=== PATIENT | male | born 1995 | race African-American/Black ===

== ENCOUNTER 2022-07-27 04:10 | Emergency (ER) | payer SELFPAY ==
[2022-07-27 04:16] VITALS: BP 138/88; PULSE 88; RESP 20; TEMP 36.6; O2SAT 99; BMI 17.2
--- NOTE | 2022-07-27 04:22 | ED.CHESTPAIN ---
HPI - Chest Pain General Chief Complaint: Chest Pain Stated Complaint: chest pain, hand are swollen Time Seen by Provider: 07/27/22 04:26 History of Present Illness HPI narrative: Patient is a 27-year-old gentleman who comes in today stating that he feels like he has blockage in his entire body. He has pain throughout his body and feels like he has poor circulation. He also feels like he has been having chest pain for last several days. He has had no nausea no vomiting no fevers no chills. He has no limitations in his activities. Pain is dull and interior in his chest. He has had no other significant symptoms but admits being under significant amount of stress. He recently lost his grandfather. Patient is not tried any [id number] medications. Patient otherwise is in reasonable health takes no chronic medication. Related Data Allergies Allergy/AdvReac Type Severity Reaction Status Date / Time coconut Allergy Severe Difficulty Verified 07/27/22 04:24 Breathing morphine Allergy Intermediate Verified 07/27/22 04:24 Review of Systems Status of ROS Reports: 10 or more systems reviewed and unremarkable except as noted in History and below PFSH [facility] Social History Smoking Status: Current every day smoker What tobacco products do you use: cigarettes Do you use any of these nicotine containing products: None How often do you have a drink containing alcohol: 4 or more times a week How many standard drinks containing alcohol do you have on a typical day: 1 or 2 AUDIT-C Alcohol total score: 4 Non-prescribed substance use: marijuana (any form) and crack/cocaine Non-prescribed substance use details: smokes marijuana daily used cocaine a few days ago Exam Narrative Exam Narrative: EXAM GENERAL: Patient appears comfortable and well. EYES: No scleral icterus. THYROID: no thyroid nodules or thyromegaly. LYMPH: No supraclavicular or cervical lymphadenopathy. SKIN: Visible skin seen during exam normal or with benign process only. EXT: No dependent lower extremity pedal edema. HEART: Regular rate and rhythm with no murmurs, rubs, or gallops. LUNGS: Clear to auscultation bilaterally with no crackles or wheezes. ABD: Soft, non tender, non distended. PSYCH: Good eye contact, speech is not pressured. Const Vital Signs, click to edit/add: Vital Signs - 24 hr 07/27/22 04:16 Temperature 98 F Pulse Rate [Pulse Oximeter] 88 Respiratory Rate 20 Blood Pressure [Left Upper Arm] 138/88 Pulse Oximetry 99 Oxygen Delivery Method Room Air Course Course Hospital Course: Patient seen examined. Vital Signs Vital signs: Initial Vital Signs Temperature 98 F 07/27/22 04:16 Temperature Source Temporal Artery Scan 07/27/22 04:16 Pulse Rate 88 07/27/22 04:16 Pulse Rhythm Regular 07/27/22 04:16 Respiratory Rate 20 07/27/22 04:16 Blood Pressure 138/88 07/27/22 04:16 Blood Pressure Mean 104 07/27/22 04:16 Pulse Oximetry 99 07/27/22 04:16 Oxygen Delivery Method Room Air 07/27/22 04:16 Vital Signs Temperature 98 F 07/27/22 04:16 Pulse Rate 88 07/27/22 04:16 Respiratory Rate 20 07/27/22 04:16 Blood Pressure 138/88 07/27/22 04:16 Pulse Oximetry 99 07/27/22 04:16 Oxygen Delivery Method Room Air 07/27/22 04:16 Temperature 98 F 07/27/22 04:16 Pulse Rate 88 07/27/22 04:16 Respiratory Rate 20 07/27/22 04:16 Blood Pressure 138/88 07/27/22 04:16 Pulse Oximetry 99 07/27/22 04:16 Oxygen Delivery Method Room Air 07/27/22 04:16 MDM - Chest Pain MDM Narrative Medical decision making narrative: Patient is a 27-year-old gentleman who comes in with chronic body aches malaise and symptoms that he feels are consistent with blockage throughout his body. He has a completely normal exam with the exception of the peers anxious. EKG troponin chest x-ray CBC basic metabolic panel are all negative. His symptoms are consistent with anxiety and I do not believe further evaluation is indicated other than outpatient follow-up. Differential Diagnosis Differential diagnosis: Likely fracture of rib, pneumothorax, stable angina, unstable angina pectoris, atypical chest pain, st elevation myocardial infarction, costochondritis and chest pain Lab Data Labs: Lab Results 07/27/22 Range/Units 04:30 WBC 8.80 (4.50-11.00) K/uL RBC 4.84 (4.30-5.90) m/uL Hgb 13.5 (13.5-17.5) gm/dL Hct 37.4 (37.0-53.0) % MCV 77 L (80-100) fL MCH 28 (26-34) pg MCHC 36 (32-36) gm/dL RDW Coeff of Celine 13.7 (11.5-15.5) % Plt Count 215 (140-440) K/uL Neut % (Auto) 71.4 (42.0-72.0) % Lymph % (Auto) 19.7 L (20-44) % [place] % (Auto) 7.3 (0.0-11.0) % Eos % (Auto) 0.9 (0.0-7.0) % Baso % (Auto) 0.5 (0.0-3.0) % Neut # (Auto) 6.29 (1.7-7.0) K/uL Lymph # (Auto) 1.70 (0.90-2.90) K/uL [place] # (Auto) 0.60 (0.00-0.90) K/UL Eos # (Auto) 0.08 (0.00-0.50) K/uL Baso # (Auto) 0.04 (0.00-0.30) K/uL Sodium 137 (135-149) mmol/L Potassium 3.4 L (3.6-5.1) mmol/L Chloride 105 (96-114) mmol/L Carbon Dioxide 24 (20-32) mmol/L BUN 11 (5-24) mg/dL Creatinine 0.8 (0.5-1.5) mg/dL Estimated Creat Clear 104.89 Estimated GFR 123 ml/min Glucose 97 (60-115) mg/dL Calcium 9.0 (8.4-10.6) mg/dL Discharge Plan Discharge Clinical Impression: Anxiety Condition: Stable Instructions: Anxiety (ED) Additional Instructions: Follow-up with primary care. Activity Level: No Restrictions Discharge Diet: Regular Stand Alone Forms: [employer] Info Instructions
--- NOTE | 2022-07-27 04:26 | CRLHL7_ITS ---
For Patients: As a result of the Century Cures Act, medical imaging exams and procedure reports are released immediately into your electronic medical record. You may view this report before your referring provider. If you have questions, please contact your health care provider. INDICATION: Chest pain. TECHNIQUE: Chest 1 views. COMPARISON: None. FINDINGS: Cardiovascular and mediastinum: Heart size and vasculature are normal in caliber and appearance. Lungs and pleural spaces: Lungs are clear. No sign of infiltrate. No sign of pleural effusion. No pneumothorax. Bones and soft tissues: No significant findings. IMPRESSION: No acute or significant findings. Dictated by Shahram Nagel MD @ 07/27/2022 6:19:17 AM (Electronically Signed)
[2022-07-27 04:41] LABS: Basophils Absolute Auto 0.04 K/uL (0.00-0.30); Basophils Percent Auto 0.5 % (0.0-3.0); Eosinophils Absolute Auto 0.08 K/uL (0.00-0.50); Eosinophils Percent Auto 0.9 % (0.0-7.0); Hematocrit 37.4 % (37.0-53.0); Hemoglobin* 13.5 gm/dL (13.5-17.5); Immature Granulocytes Abs Auto 0.02 K/uL (0.00-0.30); Immature Granulocytes Pct Auto 0.2 %; Lymphocytes Percent Auto 19.7 % (20-44); Mean Corpuscular HGB Conc 36 gm/dL (32-36); Mean Corpuscular Hemoglobin 28 pg (26-34); Mean Corpuscular Volume 77 fL (80-100); Monocytes Percent Auto 7.3 % (0.0-11.0); Neutrophils Absolute Auto 6.29 K/uL (1.7-7.0); Neutrophils Percent Auto 71.4 % (42.0-72.0); Platelet Count* 215 K/uL (140-440); RDW Coefficient of Variation % 13.7 % (11.5-15.5); Red Blood Count 4.84 m/uL (4.30-5.90)
[2022-07-27 04:43] LABS: Slide Review Reflex No
[2022-07-27 04:54] LABS: Chloride* 105 mmol/L (96-114); Potassium* 3.4 mmol/L (3.6-5.1); Sodium* 137 mmol/L (135-149)
[2022-07-27 04:57] LABS: Blood Urea Nitrogen* 11 mg/dL (5-24); Carbon Dioxide* 24 mmol/L (20-32); Creatinine* 0.8 mg/dL (0.5-1.5); Est. Creatinine Clearance* 104.89; Estimated Glomerular Filt Rate 123 ml/min; Glucose* 97 mg/dL (60-115)
[2022-07-27 05:10] LABS: Troponin I* < 0.01 ng/mL (0.01-0.04)
--- NOTE | 2022-07-27 05:15 | PC.NURSE ---
Discharge instruction gone over with patient and girlfriend, patient is feeling a little better.
== END 2022-07-27 05:16 | disposition home or self-care (01) ==
LOC: ED 04:50
PROVIDERS: Emergency Provider Internal Medicine
DX: F41.9 Anxiety disorder, unspecified (principal)
CPT/HCPCS: 36415; 71045; 80048; 84484; 85025; 93005; 99283; 99284

== ENCOUNTER 2022-12-08 15:48 | Emergency (ER) | payer SELFPAY ==
[2022-12-08 15:54] VITALS: BP 123/69; PULSE 96; RESP 20; TEMP 36.9; O2SAT 99; BMI 21.4
--- NOTE | 2022-12-08 16:31 | CRLHL7_ITS ---
For Patients: As a result of the Cures Act, medical imaging exams and procedure reports are released immediately into your electronic medical record. You may view this report before your referring provider. If you have questions, please contact your health care provider. Indication: Trauma. Technique: Left hand, 3 views. Comparison: None. Findings/Impression: Bones: Alignment is normal. No displaced fractures or bone lesions. Joint spaces: Unremarkable. Soft tissues: Soft tissue injury about the thenar eminence. No radiopaque foreign bodies. Dictated by Romero Francis MD @ 12/08/2022 5:31:58 PM (Electronically Signed)
--- NOTE | 2022-12-08 16:37 | PC.NURSE ---
[facility] called and dog bite reported, will send officer here
--- NOTE | 2022-12-08 19:10 | ED.NURSE ---
Open areas of skin on hand was covered with bacitracin, tefla and Kerlix.
[2022-12-08] MEDS: AMOXICILLIN/CLAVULANATE 875 mg/125 mg TABLET PO (19:20)
--- NOTE | 2022-12-09 00:50 | ED_ITS ---
HPI - General Adult General Chief complaint: Animal Bite Stated complaint: Dog bites Time Seen by Provider: 12/08/22 16:04 History of Present Illness HPI narrative: This is a 27-year-old male who presented to the ER today by private car for evaluation of dog bites to his left wrist and hand. The patient is generally healthy. He is up-to-date on his tetanus. He was bit by his own pit bull dog this afternoon just prior to arrival. His 2 dogs were fighting and he was apparently trying to break it up. One of the dogs bit him on the left hand. He suffered lacerations to the volar and dorsal aspect of the metacarpal of the left thumb, as well as a laceration to the dorsal midportion of his hand, and a laceration to the radial aspect of his left wrist. Having lot of pain in his hand. He has an anxious and panicky and feels tingly all over his body. After local anesthesia were able to do a better exam. He does not have any associated numbness. He has difficulty abducting his thumb against the radial side of his hand, due to pain. His dog is vaccinated against rabies. No other injuries. Related Data Previous Rx's Medication Instructions Recorded amoxicillin 875 mg-potassium 1 tab PO Q12H #10 tabs 12/08/22 clavulanate 125 mg tablet Allergies Allergy/AdvReac Type Severity Reaction Status Date / Time coconut Allergy Severe Difficulty Verified 07/27/22 04:24 Breathing morphine Allergy Intermediate Verified 07/27/22 04:24 Review of Systems Narrative: Negative [facility] Social History Smoking Status: Current every day smoker What tobacco products do you use: cigarettes Do you use any of these nicotine containing products: None How often do you have a drink containing alcohol: 4 or more times a week How many standard drinks containing alcohol do you have on a typical day: 1 or 2 AUDIT-C Alcohol total score: 4 Non-prescribed substance use: marijuana (any form) and crack/cocaine Non-prescribed substance use details: smokes marijuana daily used cocaine a few days ago Exam Narrative: Exam Narrative: Constitutional: Appears well-developed and well-nourished. Alert. He is very anxious, pacing around the room, hyperventilating. He is holding a towel over his left hand. He is able to calm down and move into bed for medial evaluate and perform local anesthesia. HENT: Head: Atraumatic. Nose: Nose normal. Mouth/Throat: Oral mucosa is clear and moist. no trismus. Pharynx normal. Tonsils symmetric. No tonsillar enlargement, erythema, or exudate. Eyes: Conjunctivae normal. EOM normal. Pupils equal, round, and reactive to light. No scleral icterus. Neck: Normal range of motion. Neck supple. No tracheal deviation present. Cardiovascular: Normal rate, regular rhythm. No gallop. No friction rub. No murmur heard. Symmetric radial artery pulses Pulmonary/Chest: Effort normal. No stridor. No respiratory distress. No wheezes. No rales. No rhonchi . Musculoskeletal: RUE: Normal range of motion. No tenderness. No deformity LUE: He has multiple lacerations. Laceration 1. Is on the palmar surface of the thenar eminence of the left thumb. It is approximately 1-1.5 cm in length and is somewhat stellate. It penetrates through the skin and into the muscle of the thenar eminence. No pulsatile bleeding. Laceration 2. Is on the dorsal surface of the metacarpal of the left thumb. It is a L-shaped 2 cm laceration. It penetrates into the subcutaneous tissue. No visible tendon injury. Laceration 3.. Is a smaller 0.5 cm laceration on the dorsal metacarpal of the left thumb just proximal to laceration 2. Laceration 4 Is a 2 cm gaping laceration on the dorsum of the patient's left hand roughly over the mid dorsum of the 3rd metacarpal. on the This penetrates down through the subcutaneous tissue not able to visualize the extensor tendon of the 2nd digit but I do not see any tendon defect. Had the patient range his finger through full range of motion. He has intact extensor tendon function and no visible tendon defect. Laceration 5. Is a 0.5 cm laceration on the radial aspect of the distal 1/4 of the forearm. Normal range of motion. No tenderness. No deformity RLE: Normal range of motion. No edema. No tenderness. No deformity LLE: Normal range of motion. No edema. No tenderness. No deformity Neurological: Alert and oriented to person, place, and time. Normal strength. CN II-VII intact. No sensory deficit. GCS eye subscore is 4. GCS verbal subscore is 5. GCS motor subscore is 6. Normal coordination intact digital nerve, radial, median, ulnar nerve sensory function. Skin: Skin is warm and dry. No rash noted. No pallor. Normal capillary refill. Psychiatric: Very anxious but response to verbal cues/calming techniques. Const: Vital Signs, click to edit/add: Vital Signs - 24 hr 12/08/22 15:54 Temperature 98.4 F Pulse Rate [Right Pulse Oximeter] 96 Respiratory Rate 20 Blood Pressure [Ri ght Upper Arm] 123/69 Pulse Oximetry 99 Oxygen Delivery Me thod Room Air Course Vital Signs Vital signs: Initial Vital Signs Temperature 98.4 F 12/08/22 15:54 Temperature Source Temporal Artery Scan 12/08/22 15:54 Pulse Rate 96 12/08/22 15:54 Pulse Rhythm Regular 12/08/22 15:54 Pulse Strength 3+ Normal 12/08/22 15:54 Respiratory Rate 20 12/08/22 15:54 Blood Pressure 123/69 12/08/22 15:54 Blood Pressure Mean 87 12/08/22 15:54 Blood Pressure Position Sitting 12/08/22 15:54 Pulse Oximetry 99 12/08/22 15:54 Oxygen Delivery Method Room Air 12/08/22 15:54 Vital Signs Temperature 98.4 F 12/08/22 15:54 Pulse Rate 96 12/08/22 15:54 Respiratory Rate 20 12/08/22 15:54 Blood Pressure 123/69 12/08/22 15:54 Pulse Oximetry 99 12/08/22 15:54 Oxygen Delivery Method Room Air 12/08/22 15:54 Temperature 98.4 F 12/08/22 15:54 Pulse Rate 96 12/08/22 15:54 Respiratory Rate 20 12/08/22 15:54 Blood Pressure 123/69 12/08/22 15:54 Pulse Oximetry 99 12/08/22 15:54 Oxygen Delivery Method Room Air 12/08/22 15:54 Medical Decision Making MDM Narrative Medical decision making narrative: Procedure: Laceration repair Location: Radial aspect, left distal forearm Length: 0.5-1 cm Local anesthesia with local infiltration of 2 mL 1% lidocaine with epi Wound prep: Scrubbing and irrigation with sterile saline and Hibiclens Wound repair: Wound was repaired using#2 simple interrupted 5 O Ethilon sutures Procedure: Laceration repair Location: Dorsal aspect of left hand Length: 2 cm Local anesthesia with local infiltration of 3 mL of 1% lidocaine with epi Wound prep: Scrubbing and irrigation with sterile saline and Hibiclens. Wound repair: Wound is repaired using#5 simple interrupted 5 O Ethilon sutures. Procedure: Laceration repair Location: Dorsal aspect of metacarpal of left thumb Length: 1.5 cm L-shaped laceration creating a small flap skin Local anesthesia with local infiltration of 3 mL of 1% lidocaine with epi Wound prep: Scrubbing with saline and Hibiclens and irrigation with sterile saline Wound repair: Wound was repaired using placement of#4 simple interrupted 5 O Ethilon sutures. Careful attention was paid to approximating the corner of the wound flap. Wound edges were well apposed Procedure: Laceration repair Location: Dorsal aspect of the metacarpal of left Length: 0.5 cm laceration Local anesthesia with local infiltration of 1 mL of 1% lidocaine with epi Wound prep: Scrubbing and irrigation with sterile saline and Hibiclens Wound repair: Wound is repaired using#1 simple interrupted 5 O Ethilon suture Procedure: Laceration repair Location: Volar aspect of metacarpal of left thumb/left thenar eminence Length: 1.5 cm irregularly-shaped stellate laceration Local anesthesia using local infiltration of 4 mL of 1% lidocaine with epi Wound prep: Irrigation with sterile saline, scrubbing with saline and Hibiclens Wound repair: Wound is repaired using 3. Simple interrupted 5 O Ethilon sutures Findings and exam are consistent with a dog bite leading to multiple lacerations on his left hand/wrist. These were repaired as noted above. There is no evidence at this time to suggest any associated fracture or foreign body. There is no evidence to suggest arterial injury and patient is neurologically in tact. He does have difficult route ranging his left thumb. Unclear if this is just due to anxiety and apprehension or patellar may actually be a deep injury there. Will arrange outpatient orthopedic follow-up.. The patient is to follow up for suture removal as instructed in 10 days. Indications to seek urgent reevaluation and signs of infection (including but not limited to increasing pain, redness, swelling, fevers, and drainage) were reviewed. Tetanus is up-to-date. The dog is up-to-date with rabies series. Since this is a dog bite we will initiate prophylactic antibiotics with Augmentin.. An understanding of the discharge instructions and need for follow up were verbally confirmed. Imaging Data X-ray left hand: Attestation: I have reviewed the pertinent imaging results. Radiologist's impression: Findings/Impression: Bones: Alignment is normal. No displaced fractures or bone lesions. Joint spaces: Unremarkable. Soft tissues: Soft tissue injury about the thenar eminence. No radiopaque foreign bodies Discharge Plan Discharge Clinical Impression: Dog bite, Laceration of hand, Laceration of forearm, Laceration of left thumb Patient Disposition: Home, Self-Care Instructions: Animal Bite (ED), Laceration (ED) Additional Instructions: Please schedule a recheck appointment with the orthopedic clinic for 2-3 days from now. call the [facility] tomorrow morning to schedule a follow-up appointment for Friday or Friday to recheck your wounds and recheck your thumb. If you have any worsening pain, redness or swelling of your wounds, pus draining from her wounds, trouble moving your thumb or fingers, please come back to the ER immediately to be rechecked. To take care of the wound: Please keep the dressings in place today. Keep the wound clean and dry and covered for 24 hours. After that he can take the dressings off. Wash gently with a warm washcloth to get any scabs or dirt from the wounds. Do not submerge or and water. Dry the wound gently. Reapply antibiotic ointment and reapplied dressings/bandages over the stitches. After that you can clean the wound and change the dressings once per day. You should have stitches removed in 10 days. Activity Detail: No lifting more than 2 lb with the left hand until sutures are removed in 10 days. Prescriptions: New amoxicillin-pot clavulanate 875-125 mg tablet 1 tab PO Q12H Qty: 10 0RF Follow Up/Referrals: Ricarda Vincent MD [Primary Care Provider] - Stand Alone Forms: [employer] Info Instructions
== END 2022-12-08 19:42 | disposition home or self-care (01) ==
PROVIDERS: Emergency Provider Emergency Medicine; PCP Family Medicine
DX: S61.412A Laceration without foreign body of left hand, initial encounter (principal); S61.512A Laceration without foreign body of left wrist, initial encounter; S61.012A Laceration without foreign body of left thumb without damage to nail, initial encounter; W54.0XXA Bitten by dog, initial encounter
CPT/HCPCS: 12002; 73130; 99283; 99284; A9270